=== PATIENT | female | born 1940 | race Caucasian/White ===

== ENCOUNTER 2017-10-11 13:38 | Inpatient (IN) | payer MEDICARE, OTHER ==
[~2017-10-11] VITALS: Ht 170.2 cm; Wt 64.0 kg
[~2017-10-11 13:38] MED LIST: ASPIR 8181 MG; CO Q-1050 MG; FENOFIBRATE145 MG; FERROUS SULFAT325 MG; GABAPENTIN300 MG PO; LOSARTAN POTAS100 MG PO; METOPROLOL SUCC25 MG; PLAVIX75 MG PO; PRAVASTATIN SOD40 MG; VITAMIN B-121000 MCG PO
[2017-10-11 14:05] LABS: BASOPHILS % 0.3 % (0.0-1.0); EOSINOPHILS # (AUTO) 0.2 (0.0-0.4); EOSINOPHILS % 1.7 % (0.0-6.0); LYMPHOCYTES % 11.3 % (18.0-39.1); MEAN CORPUSCULAR HEMOGLOBIN 23.1 pg (28-32); MEAN CORPUSCULAR HGB CONC 28.2 g/dL (31-35); MEAN CORPUSCULAR VOLUME 82.1 fL (81-99); MONOCYTES # (AUTO) 0.8 (0.2-0.8); MONOCYTES % 8.7 % (4.4-11.3); NEUTROPHILS # (AUTO) 6.8 (2.1-6.9); NEUTROPHILS % 77.4 % (38.7-80.0); PLATELET COUNT 412 x10e3/uL (140-360); RED BLOOD COUNT 2.29 x10e6/uL (3.6-5.1); RED CELL DISTRIBUTION WIDTH 17.2 % (11.7-14.4)
[2017-10-11 14:09] LABS: HEMATOCRIT 18.8 % (34.2-44.1); HEMOGLOBIN 5.3 g/dL (12.0-16.0)
[2017-10-11] MEDS ORDERED: DEXILANT60 MG (14:14)
[2017-10-11 14:22] LABS: ALANINE AMINOTRANSFERASE 9 IU/L (0-55); ALBUMIN 3.4 g/dL (3.5-5.0); ALBUMIN/GLOBULIN RATIO 1.2 (0.8-2.0); ALKALINE PHOSPHATASE 41 IU/L (40-150); ANION GAP 11.2 mmol/L (8-16); BLOOD UREA NITROGEN 24 mg/dL (7-26); BUN/CREATININE RATIO 18 (6-25); CALCIUM 9.7 mg/dL (8.4-10.2); CARBON DIOXIDE 26 mmol/L (22-29); CHLORIDE 110 mmol/L (98-107); CREATININE, SERUM 1.31 mg/dL (0.57-1.11); EST GLOMERULAR FILTRATION RATE 39 ML/MIN (60-); GLUCOSE 95 mg/dL (74-118); POTASSIUM 4.2 mmol/L (3.5-5.1); SODIUM 143 mmol/L (136-145)
[2017-10-11] MEDS ORDERED: SODIUM CHLORIDE FLUSH 10 ML SYR INJ PRN (14:30)
[2017-10-11] MEDS ORDERED: ONDANSETRON HCL INJ 2 MG/ML VIAL IV PRN (14:30)
[2017-10-11] MEDS ORDERED: MORPHINE SULFATE 2 MG/ML SYR IV PRN (14:30)
[2017-10-11 15:27] LABS: RBC MORPHOLOGY COMMENT NORMAL
[2017-10-11 15:28] LABS: HYPOCHROMASIA MODERATE; PLATELET ESTIMATE MODERATELY INCREASED; PLATELET MORPHOLOGY COMMENT NORMAL
[2017-10-11 15:30] VITALS: BP 133/81
[2017-10-11 15:53] VITALS: BP 133/81
--- NOTE | 2017-10-11 16:58 | Consultation ---
DATE OF CONSULTATION: October 11, 2017 CARDIOLOGY CONSULTATION REASON FOR CONSULTATION: Coronary artery disease and peripheral arterial disease. CHIEF COMPLAINT: Feeling weak and tired all the time and feeling dizzy intermittently. HISTORY OF PRESENT ILLNESS: Patient is a 77-year-old white female who is well known to our practice. She has been following in clinic for several years. Patient has history of coronary artery disease and has had stents placed previously. She also has history of peripheral arterial disease and has had intervention to bilateral SFAs in the past. She recently complained about having some chest discomfort with exertion that was between her shoulder blades and occurring with exertion and relieved by rest. It was 5 out of 10 in severity, aching in its quality, lasted about 5 to 10 minutes, and other than exertion did not have any other modifying factors, no other associated signs or symptoms. Because of this a stress test was ordered as an outpatient, and the stress test was recently noted to be positive. Therefore, patient was scheduled to undergo a coronary angiogram, as well as angiography of her right lower extremity for possible occlusion in her SFA due to abnormal Doppler studies as well as claudication in that leg, earlier today. However, the procedures had to be cancelled due to her hemoglobin being less than 6. Patient is now admitted to [facility] for further evaluation and treatment of the severe anemia, and we will be following her cardiac as well as vascular conditions. REVIEW OF SYSTEMS: A 10-point review of systems was performed and was negative other than what is mentioned in the HPI. PAST MEDICAL HISTORY 1. Coronary artery disease status post PCI in the past. 2. Peripheral artery disease status post SCHEDULE HANGER to bilateral SFAs in 2016. 3. Hypertension. 4. Hyperlipidemia. 5. Chronic anemia. 6. Occult GI bleeding. FAMILY HISTORY: Noncontributory. SOCIAL HISTORY: Patient does not smoke or drink and has never used any illicit drugs. Patient is and lives with her . Patient is a Taoist and refuses all blood transfusions and blood products. PHYSICAL EXAMINATION VITAL SIGNS: Heart rate 78, respiratory rate 20, blood pressure is 133/81 with O2 saturation of 98% on room air. EYES: Conjunctivae are pale but clear. EARS, NOSE, MOUTH AND THROAT: Patient has normal-appearing mucosa with pallor but otherwise no signs of bleeding or any ulceration. NECK: No jugular venous distention noted. MSK: Normal muscle tone and strength. No atrophy or abnormal movements. EXTREMITIES: No clubbing or cyanosis noted. SKIN: There are no venous stasis changes or ulcerations. GENERAL: Well-developed, well-nourished female that is well-groomed and pleasant. CARDIOVASCULAR: PMI is nondisplaced. Heart tones are regular. S1 and S2 are normal. No murmur, rubs or gallops. No carotid bruits. Palpable femoral pulses bilaterally. Palpable pedal pulse on the left and dopplerable pedal pulse on the right. No peripheral edema or varicosities noted. RESPIRATORY: No respiratory distress. Clear to auscultation bilaterally. ABDOMEN: Soft, nontender. No masses noted. No hepatomegaly or splenomegaly. NEURO AND PSYCH: Alert and oriented to person, place and time. Normal affect. ALLERGIES: NO KNOWN DRUG ALLERGIES. MEDICATIONS: Significant outpatient cardiovascular medications: Plavix 75 mg daily, losartan 100 mg daily, metoprolol succinate 25 mg daily and pravastatin 40 mg daily. LABS: Available labs are reviewed, most notable for a hemoglobin of 5.3 which is critically low. IMAGING: No imaging studies to review at this time. CARDIAC STUDIES: As noted in the HPI. There are no inpatient cardiac studies to review at this time. ASSESSMENT 1. Coronary artery disease. 2. Positive stress test. 3. Peripheral arterial disease with abnormal ultrasound of right lower extremity. 4. Claudication of the right lower extremity. PLAN: From a cardiovascular standpoint, the patient has chronic disease that needs to be addressed. However, given patient's critically low hemoglobin, this will need to be addressed before any intervention can be planned or any cardiac catheterization can be attempted. While the patient is undergoing evaluation and treatment for her chronic anemia, I recommend continuation of above-mentioned cardiovascular medicines. If it is decided that the patient is indeed experiencing bleeding and this may be life-threatening, it is acceptable to hold Plavix at this time with close observation for risk for stent thrombosis which, although minimal as the stent is over a year old, is not zero as patient is off all antiplatelet agents. Thank you for involving us in this patient's care. Job#: [id number] EV
[2017-10-11] MEDS ORDERED: IRON DEXTRAN INJ 500 MG in SODIUM CHLORIDE 0.9% 500ML 500 ML IV PRN (18:45)
[2017-10-11 19:04] LABS: CREATINE KINASE < 70 IU/L (29-168)
[2017-10-11 19:09] VITALS: BP 133/81
[2017-10-11] MEDS ORDERED: EPOETIN ALFA 10000 UNIT/ML VIAL SC ONE (19:45)
[2017-10-11 20:00] VITALS: BP 109/50
[2017-10-11] MEDS ORDERED: DEXAMETHASONE PHOS 10MG INJ 20 MG in SODIUM CHLORIDE 0.9% 50ML 50 ML IV ONE (21:00)
[2017-10-11] MEDS ORDERED: FAMOTIDINE INJ 20 MG in SODIUM CHLORIDE 0.9% 50ML 50 ML IV ONE (21:00)
[2017-10-11] MEDS ORDERED: DIPHENHYDRAMINE HCL INJ 25 MG in SODIUM CHLORIDE 0.9% 50ML 50 ML IV ONE (21:00)
[2017-10-11] MEDS: POTASSIUM CHLORIDE 10 MEQ in SODIUM CHLORIDE 0.9% 1000ML 1,000 ML IV SCH (21:56)
[2017-10-11] MEDS: PRAVASTATIN 20 MG TAB PO SCH (21:57)
[2017-10-11] MEDS: FENOFIBRATE 145 MG TAB PO SCH (21:57)
[2017-10-11] MEDS ORDERED: IRON DEXTRAN INJ 50 MG in SODIUM CHLORIDE 0.9% 100 ML IV ONE (22:00)
[2017-10-11] MEDS ORDERED: IRON SUCROSE IV ONE (22:00)
[2017-10-11] MEDS ORDERED: SODIUM CHLORIDE 0.9% IV ONE (22:00)
[2017-10-11] MEDS ORDERED: IRON SUCROSE 500 MG in SODIUM CHLORIDE 0.9% 500ML 500 ML IV ONE (23:00)
[2017-10-12] VITALS (9 sets, daily range): BP systolic 107–133; BP diastolic 47–60
[2017-10-12 05:27] LABS: BASOPHILS % 0.1 % (0.0-1.0); EOSINOPHILS % 0.1 % (0.0-6.0); LYMPHOCYTES # (AUTO) 0.6 (1.0-3.2); LYMPHOCYTES % 6.8 % (18.0-39.1); MEAN CORPUSCULAR HEMOGLOBIN 23.5 pg (28-32); MEAN CORPUSCULAR HGB CONC 28.2 g/dL (31-35); MEAN CORPUSCULAR VOLUME 83.2 fL (81-99); MONOCYTES # (AUTO) 0.1 (0.2-0.8); MONOCYTES % 0.9 % (4.4-11.3); NEUTROPHILS # (AUTO) 8.4 (2.1-6.9); NEUTROPHILS % 91.6 % (38.7-80.0); PLATELET COUNT 388 x10e3/uL (140-360); RED BLOOD COUNT 2.26 x10e6/uL (3.6-5.1); RED CELL DISTRIBUTION WIDTH 16.9 % (11.7-14.4)
[2017-10-12 05:29] LABS: HEMATOCRIT 18.8 % (34.2-44.1); HEMOGLOBIN 5.3 g/dL (12.0-16.0)
[2017-10-12 06:11] LABS: LYMPHOCYTES % (MANUAL) 7 % (19-48); NEUTROPHILS % (MANUAL) 93 % (40-74)
[2017-10-12 06:12] LABS: ANISOCYTOSIS MODERATE; HYPOCHROMASIA MODERATE; PLATELET ESTIMATE ADEQUATE; PLATELET MORPHOLOGY COMMENT NORMAL; RBC MORPHOLOGY COMMENT NORMAL
[2017-10-12] MEDS: POTASSIUM CHLORIDE 10 MEQ in SODIUM CHLORIDE 0.9% 1000ML 1,000 ML IV SCH ×2 (08:09→21:16)
[2017-10-12] MEDS: CO Q10 PO SCH ×2 (09:00→17:00)
[2017-10-12] MEDS: PANTOPRAZOLE SOD 40 MG TABEC PO SCH (11:09)
[2017-10-12] MEDS: METOPROLOL SUCCINATE 25 MG TAB XL PO SCH (11:09)
[2017-10-12] MEDS: CYANOCOBALAMIN 1,000 MCG TAB PO SCH (11:09)
[2017-10-12] MEDS: LOSARTAN POTASSIUM 100 MG TAB PO SCH (11:09)
[2017-10-12] MEDS: CLOPIDOGREL BISULFATE 75 MG TAB PO SCH (11:15)
--- NOTE | 2017-10-12 13:16 | Progress Note ---
DATE: October 12, 2017 CARDIOLOGY PROGRESS NOTE SUBJECTIVE AND OVERNIGHT EVENTS: Patient received injection of her EPO yesterday. No major events otherwise overnight. Feels okay. Has not had any chest pain or significant dyspnea on exertion. No signs of acute active bleeding. OBJECTIVE VITAL SIGNS: Temperature 96.3, heart rate 83, respiratory rate 16, blood pressure 112/53, saturations 98% on room air. GENERAL: Patient is a well-developed and well-nourished female, well groomed. CARDIOVASCULAR: Patient's PMI is nondisplaced. Has regular heart tones. Normal S1, S2. No murmurs, rubs, or gallops heard. Patient has brisk carotid upstrokes, palpable femoral pulses as well as palpable pedal pulses, left greater than right. No significant peripheral edema or varicosities noted. RESPIRATORY: No acute distress. LUNGS: Clear to auscultation bilaterally. ABDOMEN: Soft, nontender, nondistended. No masses or hepatosplenomegaly noted. NEURO AND PSYCH: Patient is alert and oriented to person, place and time. Displays a normal affect. CARDIOVASCULAR MEDICATIONS: The patient is on 1. Clopidogrel 75 mg daily. 2. Metoprolol succinate 25 mg daily. 3. Losartan 100 mg daily. LABORATORY DATA: Reviewed and notable for hemoglobin of 5.3 which is unchanged from yesterday. Chemistry--patient's BNP was noted to be 325.4. IMAGING: No new imaging data to review today. TELEMETRY: Reviewed. Notable for normal sinus rhythm with some PACs, no significant arrhythmias. ASSESSMENT 1. Coronary artery disease. 2. Positive stress test. 3. Peripheral arterial disease with abnormal ultrasound of the right lower extremity. 4. Claudication of the right lower extremity. 5. Severe anemia. PLAN: Patient remains stable from a cardiovascular standpoint. Receiving treatment for her severe anemia with epoetin as patient's spiritism beliefs prevent her from receiving any blood transfusions. Do not plan on doing any catheterizations or cardiac or peripheral vascular interventions until her hemoglobin recovers. Recommend we continue the cardiovascular medications as stated above. Patient had stent placement in September 2016 so is greater than one year out from her most recent stenting. Although the risk of stent thrombosis with stopping antiplatelets would be relatively low, would recommend that we continue Plavix unless there is deemed to be life-threatening bleeding as consequence of stent thrombosis can be devastating. Job#: [id number] DG
[2017-10-12] MEDS: EPOETIN ALFA 10000 UNIT/ML VIAL SC SCH (14:54)
[2017-10-12] MEDS ORDERED: CYANOCOBALAMIN IM (15:30)
[2017-10-12] MEDS ORDERED: FISH OIL 1,0001 EAC3 PO (17:51)
[2017-10-12] MEDS ORDERED: CYANOCOBALAMIN IM SCH (19:30)
[2017-10-12] MEDS ORDERED: HOME MEDICATION--PATIENTS OWN PO SCH (21:00)
[2017-10-12] MEDS: PRAVASTATIN 20 MG TAB PO SCH (21:16)
[2017-10-12] MEDS: FENOFIBRATE 145 MG TAB PO SCH (21:16)
[2017-10-12] MEDS: CYANOCOBALAMIN INJ 1,000 MCG/ML VIAL IM SCH (21:30)
[2017-10-13] VITALS (7 sets, daily range): BP systolic 92–124; BP diastolic 41–60
[2017-10-13 05:44] LABS: BASOPHILS % 0.1 % (0.0-1.0); EOSINOPHILS % 0.2 % (0.0-6.0); LYMPHOCYTES # (AUTO) 1.4 (1.0-3.2); LYMPHOCYTES % 6.1 % (18.0-39.1); MEAN CORPUSCULAR HEMOGLOBIN 23.4 pg (28-32); MEAN CORPUSCULAR HGB CONC 29.2 g/dL (31-35); MEAN CORPUSCULAR VOLUME 80.2 fL (81-99); MONOCYTES # (AUTO) 1.6 (0.2-0.8); MONOCYTES % 6.9 % (4.4-11.3); NEUTROPHILS # (AUTO) 19.1 (2.1-6.9); NEUTROPHILS % 84.8 % (38.7-80.0); PLATELET COUNT 328 x10e3/uL (140-360); RED BLOOD COUNT 1.92 x10e6/uL (3.6-5.1); RED CELL DISTRIBUTION WIDTH 17.2 % (11.7-14.4)
[2017-10-13 05:48] LABS: HEMATOCRIT 15.4 % (34.2-44.1); HEMOGLOBIN 4.5 g/dL (12.0-16.0)
[2017-10-13 06:15] LABS: LYMPHOCYTES % (MANUAL) 9 % (19-48); MONOCYTES % (MANUAL) 10 % (3.4-9.0); NEUTROPHILS % (MANUAL) 81 % (40-74); NUCLEATED RED BLOOD CELLS 3; RBC MORPHOLOGY COMMENT NORMAL
[2017-10-13 06:16] LABS: PLATELET ESTIMATE ADEQUATE; PLATELET MORPHOLOGY COMMENT NORMAL
[2017-10-13] MEDS: CO Q10 PO SCH ×2 (09:00→17:00)
[2017-10-13] MEDS: CLOPIDOGREL BISULFATE 75 MG TAB PO SCH (09:00)
[2017-10-13] MEDS: LOSARTAN POTASSIUM 100 MG TAB PO SCH (09:00)
[2017-10-13] MEDS: CYANOCOBALAMIN 1,000 MCG TAB PO SCH (09:00)
[2017-10-13] MEDS: OMEGA 3 POLYUNSAT FATTY ACIDS 1000 MG SOFTGEL PO SCH ×2 (09:00→17:00)
[2017-10-13] MEDS: METOPROLOL SUCCINATE 25 MG TAB XL PO SCH (09:00)
[2017-10-13] MEDS: PANTOPRAZOLE SOD 40 MG TABEC PO SCH (09:00)
[2017-10-13] MEDS: POTASSIUM CHLORIDE 10 MEQ in SODIUM CHLORIDE 0.9% 1000ML 1,000 ML IV SCH ×2 (10:57→18:45)
--- NOTE | 2017-10-13 11:07 | Progress Note ---
DATE: October 13, 2017 CARDIOLOGY PROGRESS NOTE SUBJECTIVE: Patient denies chest pain or shortness of breath. She does continue to complain of weakness. OBJECTIVE VITAL SIGNS: Temperature 96 degrees, pulse 76, respiratory rate 14, blood pressure 93/51, oxygen saturation 97% on room air. GENERAL: Awake, alert, in no acute distress. LUNGS: Clear to auscultation bilaterally. No wheezes or crackles. CARDIOVASCULAR: Normal rate, regular rhythm. No murmur. Normal S1 and S2. ABDOMEN: Soft, nontender. EXTREMITIES: No edema. CARDIAC MEDICATIONS 1. Fenofibrate 145 mg p.o. nightly. 2. Plavix 75 mg p.o. daily. 3. Metoprolol succinate 25 mg p.o. daily. 4. Losartan 100 mg p.o. daily. 5. Fish oil 1000 mg p.o. b.i.d. LABS: WBC 22.5, hemoglobin 4.5, hematocrit 15.4, platelets 328. TELEMETRY: Normal sinus rhythm. IMPRESSION 1. Severe anemia. 2. Coronary artery disease status post left anterior descending percutaneous coronary intervention September 2016. 3. Peripheral arterial disease with bilateral lower extremity arterial Doppler suggesting severe focal stenosis of the right superficial femoral artery. 4. Nuclear stress test with inferior ischemia. 5. Positive stool occult blood. RECOMMENDATIONS: As patient is a Christianity, she is unable to receive any blood transfusions. She is being treated by Hematology with Epogen as well as iron infusions. She is stable from a cardiac standpoint. However, at this time she is not a candidate for any invasive cardiac or peripheral evaluations due to her severe anemia. Given decrease in hemoglobin and hematocrit, we will discontinue Plavix and start low-dose aspirin. Continue current cardiac medications otherwise. Further evaluation of positive stool occult blood per primary service. Thank you for this consult. We will continue to follow. Job#: [id number] EV MTDGreg
[2017-10-13] MEDS: FENOFIBRATE 145 MG TAB PO SCH (21:17)
[2017-10-13] MEDS: PRAVASTATIN 20 MG TAB PO SCH (21:17)
[2017-10-14] VITALS (7 sets, daily range): BP systolic 103–128; BP diastolic 47–58
[2017-10-14 05:24] LABS: BASOPHILS % 0.2 % (0.0-1.0); EOSINOPHILS # (AUTO) 0.1 (0.0-0.4); EOSINOPHILS % 0.4 % (0.0-6.0); LYMPHOCYTES # (AUTO) 1.2 (1.0-3.2); MEAN CORPUSCULAR HGB CONC 28.7 g/dL (31-35); MEAN CORPUSCULAR VOLUME 83.7 fL (81-99); MONOCYTES % 8.2 % (4.4-11.3); PLATELET COUNT 345 x10e3/uL (140-360); RED BLOOD COUNT 1.96 x10e6/uL (3.6-5.1)
[2017-10-14 05:29] LABS: HEMATOCRIT 16.4 % (34.2-44.1); HEMOGLOBIN 4.7 g/dL (12.0-16.0)
[2017-10-14 08:04] LABS: EOSINOPHILS % (MANUAL) 2 % (0-7); LYMPHOCYTES % (MANUAL) 4 % (19-48); MONOCYTES % (MANUAL) 6 % (3.4-9.0); NEUTROPHILS % (MANUAL) 88 % (40-74)
[2017-10-14 08:05] LABS: ANISOCYTOSIS MODERATE; HYPOCHROMASIA MODERATE; MICROCYTOSIS SLIGHT; POLYCHROMASIA FEW; RBC MORPHOLOGY COMMENT ABNORMAL
[2017-10-14] MEDS: CO Q10 PO SCH ×2 (09:00→17:00)
[2017-10-14] MEDS: ASPIRIN 81 MG ENTERIC COATED PO SCH (09:01)
[2017-10-14] MEDS: LOSARTAN POTASSIUM 100 MG TAB PO SCH (09:02)
[2017-10-14] MEDS: METOPROLOL SUCCINATE 25 MG TAB XL PO SCH (09:02)
[2017-10-14] MEDS: CYANOCOBALAMIN 1,000 MCG TAB PO SCH (09:02)
[2017-10-14] MEDS: OMEGA 3 POLYUNSAT FATTY ACIDS 1000 MG SOFTGEL PO SCH ×2 (09:02→17:13)
[2017-10-14] MEDS: PANTOPRAZOLE SOD 40 MG TABEC PO SCH (09:02)
[2017-10-14] MEDS: POTASSIUM CHLORIDE 10 MEQ in SODIUM CHLORIDE 0.9% 1000ML 1,000 ML IV SCH ×3 (11:30→23:52)
--- NOTE | 2017-10-14 13:04 | Progress Note ---
DATE: October 14, 2017 CARDIOLOGY PROGRESS NOTE SUBJECTIVE: Patient denies chest pain or shortness of breath. She is complaining of nausea today. OBJECTIVE VITAL SIGNS: Temperature 98.8 degrees, pulse 86, respiratory rate 16, blood pressure 107/53, oxygen saturation 97% on room air. GENERAL: Awake, alert, in no acute distress. LUNGS: Clear to auscultation bilaterally. No wheezes or crackles. CARDIOVASCULAR: Normal rate, regular rhythm. No murmur. Normal S1 and S2. ABDOMEN: Soft, nontender. EXTREMITIES: No edema. CARDIAC MEDICATIONS 1. Metoprolol succinate 25 mg p.o. daily. 2. Losartan 100 mg p.o. daily. 3. Aspirin 81 mg p.o. daily. 4. Fenofibrate 145 mg p.o. nightly. LABS: WBC 24.06, hemoglobin 4.7, hematocrit 16.4, platelets 345. Sodium 143, potassium 4.2, chloride 110, CO2 26, BUN 24, creatinine 1.31. TELEMETRY: Normal sinus rhythm. IMPRESSION 1. Severe anemia. 2. Coronary artery disease status post left anterior descending percutaneous coronary intervention September 2016. 3. Peripheral arterial disease with bilateral lower extremity arterial Doppler suggesting severe focal stenosis of the right superficial femoral artery. 4. Nuclear stress test with inferior ischemia. 5. Positive stool occult blood. RECOMMENDATIONS: Due to patient's anglican beliefs, she is unable to receive any blood transfusions. She is being treated by Hematology with Epogen as well as iron infusions. Recommend GI consultation given the patient's positive stool occult blood as well as nausea. She is otherwise stable from a cardiac standpoint. However, she is not a candidate for any invasive cardiac or peripheral evaluations due to her severe anemia. Continue current cardiac medications. Thank you for this consult. We will continue to follow. Job#: [id number] EV MIO
[2017-10-14] MEDS ORDERED: SODIUM CHLORIDE 0.9% 1000ML 1,000 ML ONE (15:22)
[2017-10-14] MEDS: PRAVASTATIN 20 MG TAB PO SCH (20:42)
[2017-10-14] MEDS: FENOFIBRATE 145 MG TAB PO SCH (20:42)
[2017-10-15] VITALS (8 sets, daily range): BP systolic 109–150; BP diastolic 48–65
[2017-10-15 06:06] LABS: BASOPHILS % 0.1 % (0.0-1.0); EOSINOPHILS # (AUTO) 0.2 (0.0-0.4); EOSINOPHILS % 1.2 % (0.0-6.0); LYMPHOCYTES # (AUTO) 0.7 (1.0-3.2); LYMPHOCYTES % 5.3 % (18.0-39.1); MEAN CORPUSCULAR VOLUME 85.7 fL (81-99); MONOCYTES # (AUTO) 1.3 (0.2-0.8); MONOCYTES % 9.3 % (4.4-11.3); NEUTROPHILS # (AUTO) 11.3 (2.1-6.9); NEUTROPHILS % 82.6 % (38.7-80.0); PLATELET COUNT 314 x10e3/uL (140-360); RED BLOOD COUNT 1.96 x10e6/uL (3.6-5.1); RED CELL DISTRIBUTION WIDTH 19.8 % (11.7-14.4)
[2017-10-15 06:34] LABS: HEMATOCRIT 16.8 % (34.2-44.1); HEMOGLOBIN 4.7 g/dL (12.0-16.0)
[2017-10-15 08:00] LABS: POLYCHROMASIA FEW; RBC MORPHOLOGY COMMENT NORMAL
[2017-10-15 08:01] LABS: ANISOCYTOSIS SLIG; HYPOCHROMASIA MODE; PLATELET ESTIMATE ADEQUATE; PLATELET MORPHOLOGY COMMENT NORMAL; POIKILOCYTOSIS SLIGHT
[2017-10-15] MEDS: CO Q10 PO SCH ×2 (08:48→16:52)
[2017-10-15] MEDS: CYANOCOBALAMIN 1,000 MCG TAB PO SCH (08:48)
[2017-10-15] MEDS: ASPIRIN 81 MG ENTERIC COATED PO SCH (08:48)
[2017-10-15] MEDS: LOSARTAN POTASSIUM 100 MG TAB PO SCH (08:48)
[2017-10-15] MEDS: OMEGA 3 POLYUNSAT FATTY ACIDS 1000 MG SOFTGEL PO SCH ×2 (08:48→17:13)
[2017-10-15] MEDS: METOPROLOL SUCCINATE 25 MG TAB XL PO SCH (08:48)
[2017-10-15] MEDS: PANTOPRAZOLE SOD 40 MG TABEC PO SCH (08:48)
[2017-10-15] MEDS: CYANOCOBALAMIN INJ 1,000 MCG/ML VIAL IM SCH (08:48)
[2017-10-15] MEDS: METOCLOPRAMIDE HCL 10 MG TAB PO SCH ×2 (12:07→17:13)
--- NOTE | 2017-10-15 13:30 | Progress Note ---
DATE: October 15, 2017 CARDIOLOGY PROGRESS NOTE SUBJECTIVE AND OVERNIGHT EVENTS: No major events overnight. From a cardiovascular perspective, patient remains asymptomatic. Denies any chest pain, shortness of breath or any rest pain in lower extremities. Patient has been able to go up and use the restroom and walk around the room on her own. Reports some nausea and some headache this morning, otherwise asymptomatic. REVIEW OF SYSTEMS: As above, otherwise negative. PHYSICAL EXAMINATION VITAL SIGNS: Temperature 97.3, heart rate 90, respiratory rate 18, blood pressure 117/57. Saturations 97% on room air. GENERAL: Patient is a well-developed, well-nourished female who was well groomed. CARDIOVASCULAR: Her PMI is nondisplaced. Heart tones are regular. S1 and S2 are normal. No murmurs, rubs, or gallops are heard. She has bounding carotid pulses. Has palpable femoral pulses. Her pedal pulses are diminished and barely palpable. There is trace peripheral edema to the ankles and no varicosities are noted. RESPIRATORY: No respiratory distress. Clear to auscultation bilaterally. ABDOMEN: Soft, nontender and nondistended. There are no masses and no hepatosplenomegaly. NEURO AND PSYCH: Patient is alert and oriented to person, place and time and displays a normal affect. CARDIOVASCULAR MEDICATIONS: As follows 1. Aspirin 81 mg daily. 2. Metoprolol succinate 25 mg daily. 3. Losartan 100 mg daily. 4. Fenofibrate 145 mg at night time. LABORATORY: Notable for hemoglobin of 4.7, is critically low. Otherwise, no significant changes. No new imaging to review. TELEMETRY: Telemetry reviewed. No significant arrhythmias. Normal sinus rhythm. ASSESSMENT AND PLAN 1. Severe anemia. 2. Coronary artery disease status post left anterior descending stents in September 2016. 3. Peripheral arterial disease with bilateral lower extremity arterial Doppler suggesting focal stenosis of the right SFA. 4. Positive nuclear stress test with inferior ischemia. 5. Positive stool occult blood. PLAN: Patient's hemoglobin remains critically low however due to her presybeterian beliefs, she is unable to accept any blood transfusions. She is currently being managed by Hematology with Epogen, B12 and iron. There is no evidence of any overt bleeding however her stool occult was positive. Due to this we changed her Plavix 75 daily to now just aspirin 81 mg daily which would be the lowest level of antiplatelet therapy that she can receive from cardiovascular standpoint. Despite having positive stress test as noted above and Doppler suggesting of a focal stenosis in the right SFA as described above, given her critically low hemoglobin, patient is not a candidate for any interventions at this point. Recommend that we continue her cardiac medications as stated above. Will continue to follow. Thank you for this consult. Job#: [id number] VIBHA
[2017-10-15] MEDS: EPOETIN ALFA 10000 UNIT/ML VIAL SC SCH (15:30)
[2017-10-15] MEDS: POTASSIUM CHLORIDE 10 MEQ in SODIUM CHLORIDE 0.9% 1000ML 1,000 ML IV SCH (16:05)
[2017-10-15] MEDS: FENOFIBRATE 145 MG TAB PO SCH (21:57)
[2017-10-15] MEDS: SIMVASTATIN 20 MG TAB PO SCH (21:57)
[2017-10-16] VITALS (7 sets, daily range): BP systolic 100–120; BP diastolic 45–65
[2017-10-16 05:57] LABS: BASOPHILS % 0.2 % (0.0-1.0); EOSINOPHILS # (AUTO) 0.2 (0.0-0.4); EOSINOPHILS % 1.7 % (0.0-6.0); LYMPHOCYTES # (AUTO) 0.7 (1.0-3.2); LYMPHOCYTES % 6.3 % (18.0-39.1); MEAN CORPUSCULAR HEMOGLOBIN 24.7 pg (28-32); MEAN CORPUSCULAR HGB CONC 28.3 g/dL (31-35); MEAN CORPUSCULAR VOLUME 87.4 fL (81-99); MONOCYTES # (AUTO) 0.9 (0.2-0.8); MONOCYTES % 8.1 % (4.4-11.3); NEUTROPHILS # (AUTO) 9.1 (2.1-6.9); NEUTROPHILS % 82.4 % (38.7-80.0); PLATELET COUNT 261 x10e3/uL (140-360); RED BLOOD COUNT 1.98 x10e6/uL (3.6-5.1)
[2017-10-16 06:09] LABS: HEMATOCRIT 17.3 % (34.2-44.1); HEMOGLOBIN 4.9 g/dL (12.0-16.0)
[2017-10-16 07:24] LABS: ANISOCYTOSIS MODE; HYPOCHROMASIA MODE; PLATELET ESTIMATE ADEQUATE; PLATELET MORPHOLOGY COMMENT NORMAL; POIKILOCYTOSIS SLIGHT; POLYCHROMASIA FEW; RBC MORPHOLOGY COMMENT ABNORMAL
[2017-10-16] MEDS: METOCLOPRAMIDE HCL 10 MG TAB PO SCH ×3 (08:05→17:24)
[2017-10-16] MEDS: CYANOCOBALAMIN 1,000 MCG TAB PO SCH (08:45)
[2017-10-16] MEDS: METOPROLOL SUCCINATE 25 MG TAB XL PO SCH (08:45)
[2017-10-16] MEDS: CO Q10 PO SCH ×2 (08:45→17:00)
[2017-10-16] MEDS: LOSARTAN POTASSIUM 100 MG TAB PO SCH (08:45)
[2017-10-16] MEDS: ASPIRIN 81 MG ENTERIC COATED PO SCH (08:45)
[2017-10-16] MEDS: PANTOPRAZOLE SOD 40 MG TABEC PO SCH (08:45)
[2017-10-16] MEDS: OMEGA 3 POLYUNSAT FATTY ACIDS 1000 MG SOFTGEL PO SCH ×2 (08:45→17:24)
--- NOTE | 2017-10-16 14:55 | Progress Note ---
DATE: October 16, 2017 CARDIOLOGY PROGRESS NOTE SUBJECTIVE/OVERNIGHT EVENTS: No major overnight events. From a cardiovascular perspective, the patient remains overnight. Denies any chest pain, shortness of breath or any claudication symptoms. She has been ambulating inside her room without any symptoms. Reports that she feels a little more energetic today. Her appetite has also improved. REVIEW OF SYSTEMS: As above. Otherwise negative. PHYSICAL EXAMINATION VITAL SIGNS: Temperature 98.8, heart rate 88, respiratory rate 18, blood pressure 100/47, oxygen saturation 98% on room air. GENERAL: The patient is a well-developed, well-nourished female who is well groomed. CARDIOVASCULAR: PMI is not displaced. Heart tones regular. S1 and S2 normal. No murmurs, rubs or gallops are heard. Pounding carotid pulses. Palpable femoral pulses. Pedal pulses are diminished. Trace peripheral edema to the ankles without varicosities. RESPIRATORY: No respiratory distress. Clear to auscultation bilaterally. ABDOMEN: Soft, nontender and nondistended. There are no masses and no hepatosplenomegaly. NEURO/PSYCH: The patient is alert and oriented to person, place and time. Displays a normal affect. CARDIOVASCULAR MEDICATIONS 1. Aspirin 81 mg daily. 2. Metoprolol succinate 25 mg daily. 3. Losartan 100 mg daily. 4. Simvastatin 20 mg at bedtime. 5. Fenofibrate 145 mg at bedtime. LABORATORY FINDINGS: Lab data reviewed. Notable for slight improvement in hemoglobin from 4.7 to 4.9. IMAGING: No new imaging data to review. Telemetry data reviewed. Normal sinus rhythm without any significant arrhythmias. CARDIOLOGY STUDIES: No new cardiology studies to review. ASSESSMENT AND PLAN 1. Severe anemia. 2. Coronary artery disease: Status post left anterior descending stents in September 2016. 3. Peripheral arterial disease with bilateral lower extremity Dopplers suggesting focal stenosis of the right superficial femoral artery. 4. Positive nuclear stress test with inferior ischemia. 5. Positive stool occult blood. PLAN: The patient's hemoglobin remains critically low. However, has come up slightly from 4.7 to 4.9. The patient refuses any blood transfusions or blood products given her strong samaritan beliefs. There is no evidence of any overt bleeding. However, her stool occult was positive for blood. Due to this, we have changed her Plavix 75 mg daily to now just aspirin 81 mg daily to minimize any bleeding risk from antiplatelet agents. She does have a positive stress test, and Doppler suggesting of focal stenosis of the right SFA. However, given her critically low hemoglobin, the patient is not a candidate for any catheterizations or interventions at this time. Recommend that we continue her cardiac medications as stated above. Will continue to follow. Thank you for this consult. Job#: [id number] MONY
[2017-10-16] MEDS: POTASSIUM CHLORIDE 10 MEQ in SODIUM CHLORIDE 0.9% 1000ML 1,000 ML IV SCH (18:35)
[2017-10-16] MEDS: FENOFIBRATE 145 MG TAB PO SCH (21:56)
[2017-10-16] MEDS: SIMVASTATIN 20 MG TAB PO SCH (21:56)
[2017-10-17] VITALS: BP 125/53
[2017-10-17 04:00] VITALS: BP 114/56
[2017-10-17 05:59] LABS: BASOPHILS % 0.2 % (0.0-1.0); EOSINOPHILS # (AUTO) 0.2 (0.0-0.4); EOSINOPHILS % 1.6 % (0.0-6.0); LYMPHOCYTES # (AUTO) 0.8 (1.0-3.2); LYMPHOCYTES % 5.8 % (18.0-39.1); MEAN CORPUSCULAR HEMOGLOBIN 23.8 pg (28-32); MEAN CORPUSCULAR HGB CONC 27.6 g/dL (31-35); MEAN CORPUSCULAR VOLUME 86.1 fL (81-99); MONOCYTES % 7.8 % (4.4-11.3); NEUTROPHILS # (AUTO) 10.8 (2.1-6.9); NEUTROPHILS % 83.6 % (38.7-80.0); PLATELET COUNT 338 x10e3/uL (140-360); RED BLOOD COUNT 2.23 x10e6/uL (3.6-5.1); RED CELL DISTRIBUTION WIDTH 21.1 % (11.7-14.4)
[2017-10-17 06:23] LABS: HEMATOCRIT 19.2 % (34.2-44.1); HEMOGLOBIN 5.3 g/dL (12.0-16.0)
[2017-10-17 07:13] LABS: ANISOCYTOSIS SLIG; ELLIPTOCYTE, RBC SLIGHT; HYPOCHROMASIA MODERATE; PLATELET ESTIMATE ADEQUATE; PLATELET MORPHOLOGY COMMENT NORMAL; POIKILOCYTOSIS SLIG
[2017-10-17 07:14] LABS: RBC MORPHOLOGY COMMENT ABNORMAL
[2017-10-17 08:20] VITALS: BP 143/97
[2017-10-17] MEDS: CO Q10 PO SCH (09:00)
[2017-10-17 09:30] VITALS: BP 143/97
[2017-10-17] MEDS: CYANOCOBALAMIN 1,000 MCG TAB PO SCH (09:30)
[2017-10-17] MEDS: LOSARTAN POTASSIUM 100 MG TAB PO SCH (09:30)
[2017-10-17] MEDS: OMEGA 3 POLYUNSAT FATTY ACIDS 1000 MG SOFTGEL PO SCH (09:30)
[2017-10-17] MEDS: ASPIRIN 81 MG ENTERIC COATED PO SCH (09:30)
[2017-10-17] MEDS: CYANOCOBALAMIN INJ 1,000 MCG/ML VIAL IM SCH (09:30)
[2017-10-17] MEDS: METOCLOPRAMIDE HCL 10 MG TAB PO SCH ×2 (09:30→12:24)
[2017-10-17] MEDS: PANTOPRAZOLE SOD 40 MG TABEC PO SCH (09:30)
[2017-10-17] MEDS: METOPROLOL SUCCINATE 25 MG TAB XL PO SCH (09:30)
--- NOTE | 2017-10-17 11:03 | Progress Note ---
DATE: October 17, 2017 CARDIOLOGY PROGRESS NOTE SUBJECTIVE AND OVERNIGHT EVENTS: The patient is doing well. No complaints overnight. No major events overnight. Denies any chest pain, shortness of breath or claudication symptoms. REVIEW OF SYSTEMS: As above. Otherwise negative. PHYSICAL EXAMINATION VITALS: Temperature 97.7, heart rate 91, respiratory rate 20, blood pressure 143/97, 98% on room air. GENERAL: The patient is a well-developed, well-nourished, white female. CARDIOVASCULAR: PMI is nondisplaced. Heart tones regular. S1 and S2 normal. No murmurs, rubs or gallops are heard. Bounding carotid pulses. Palpable femoral pulses. Diminished pedal pulses. Trace ankle edema without varicosities. RESPIRATORY: No respiratory distress. Lungs are clear to auscultation bilaterally. ABDOMEN: Soft, nontender and nondistended. No masses and no hepatosplenomegaly. NEURO/PSYCH: Alert and oriented to person, place and time. Normal affect. CARDIOVASCULAR MEDICATIONS 1. Aspirin 81 mg daily. 2. Metoprolol succinate 25 mg daily. 3. Losartan 100 mg daily. 4. Simvastatin 20 mg at bedtime. 5. Fenofibrate 145 mg at bedtime. LABORATORY FINDINGS: Laboratory data reviewed. Notable for continued improvement in hemoglobin up to 5.3 grams today. IMAGING: No new imaging data to review today. TELEMETRY: Telemetry data reviewed. Normal sinus rhythm without significant arrhythmias. CARDIOLOGY STUDIES: No new cardiology studies to review today. ASSESSMENT 1. Severe anemia. 2. Coronary artery disease, status post left anterior descending stents in September 2016. 3. Peripheral arterial disease with bilateral lower extremity Dopplers suggesting focal stenosis of the right superficial femoral artery. 4. Positive nuclear stress test with inferior ischemia. 5. Positive stool occult blood. PLAN: The patient's hemoglobin continues to improve. Remains asymptomatic from a cardiovascular standpoint. Recommend continuing the above cardiovascular medications. No plans for any cardiac interventions at this time until the hemoglobin recovers. Thank you for this consult. We will continue to follow. Job#: [id number]
--- NOTE | 2017-10-17 12:03 | History and Physical ---
Destiny Braun is a 77-year-old white female, a Jain, who was sent to my office by the lead assistant manager, who attempted to do a cardiac cath at [facility]. Subsequently was found to have a hemoglobin of 6 with GI bleed. Subsequently referred to me for further evaluation. The patient was able to ambulate just about 50 feet before the patient was giving out. The patient also reported heaviness in both lower extremities and pain between the shoulder blades. The symptoms subsided with rest. The patient had her 6-week followup on 10/20/2017, however, had to be seen immediately as the lead assistant manager had called me personally. HISTORY OF PAST ILLNESS: History of iron deficiency anemia. History of being a Jain. The patient's baseline hemoglobin was 7.2 grams on 11/23/2016. The patient had completed 4 courses of INFeD. The patient's hemoglobin had risen up reasonably. The patient had to be hospitalized again on 04/11/2017 with a hemoglobin of 6.9, treated basically with Procrit and INFeD as she is a Jain. The patient was found to have colonic polyps. MEDICATIONS AT THIS TIME 1. Dexilant. 2. Losartan. 3. Fenofibrate. 4. Ferrous sulfate. 5. Metoprolol. 6. Plavix. 7. Pravastatin. 8. Vitamin D. 9. Protonix. 10. Vitamin B12. 11. Fiber. 12. Chlorophyll. 13. [place]-3. 14. Heart HealthPak. 15. CoQ10. 16. Aloe vera juice. SURGICAL HISTORY: Polypectomy in 2012 for colorectal polyp. Peripheral arterial disease. ALLERGIES: CODEINE. REVIEW OF SYSTEMS HEENT: Normal. CARDIAC: Hypertension and hyperlipidemia. RESPIRATORY: Shortness of breath. GI: GI bleeds in the past. : Normal. MUSCULOSKELETAL: Normal. SKIN AND BREASTS: Normal. NEUROENDOCRINE: Normal. PHYSICAL EXAMINATION GENERAL: A moderately built female, anemic, no palpable adenopathy. HEART: Within normal limits. LUNGS: Clear. ABDOMEN: Obese. There is no hepatosplenomegaly. RECTAL AND VAGINAL: Exam was deferred. CENTRAL NERVOUS SYSTEM: Essentially normal. IMPRESSION 1. Iron deficiency anemia secondary to blood loss. 2. Chronic renal failure. 3. Essential hypertension. 4. History of corpus uteri. 5. History of angioplasty. 6. Peripheral arterial disease with angioplasty. 7. Restless legs syndrome. PLAN: Give her iron and Procrit. She refuses to have any blood transfusion as she is a Jain. Job#: [id number]
[2017-10-17 12:23] VITALS: BP 144/63
== END 2017-10-17 15:45 | disposition home or self-care (01) | DRG 812 ==
LOC: ER 13:38 → ERHOLD 15:37 → IMCU 15:40 → OBSVTOIN 10-14 10:18 → MED/SURG 10-14 10:48
PROVIDERS: ADMIT Internal Medicine Medical Oncology; ATTEND Internal Medicine Medical Oncology
DX: D50.0 Iron deficiency anemia secondary to blood loss (chronic) (principal); K92.2 Gastrointestinal hemorrhage, unspecified; I25.10 Atherosclerotic heart disease of native coronary artery without angina pectoris; I12.9 Hypertensive chronic kidney disease with stage 1 through stage 4 chronic kidney disease, or unspecified chronic kidney disease; N18.9 Chronic kidney disease, unspecified; Z95.5 Presence of coronary angioplasty implant and graft; E11.51 Type 2 diabetes mellitus with diabetic peripheral angiopathy without gangrene; Z79.4 Long term (current) use of insulin; I70.211 Atherosclerosis of native arteries of extremities with intermittent claudication, right leg; Z53.1 Procedure and treatment not carried out because of patient's decision for reasons of belief and group pressure; R94.39 Abnormal result of other cardiovascular function study; G25.81 Restless legs syndrome
CPT/HCPCS: 36415; 80053; 82270; 82550; 82553; 83880; 84484; 85025; 93005; 97139; 99284; G0378; J1100; J1200; J1750; J1756; J3420; J3480; J7030; J7040; J7050; Q4081

== ENCOUNTER → 2018-04-01 | Outpatient (CLI) | payer MEDICARE, OTHER ==
[~2018-04-01] MED LIST changes: +CYANOCOBALAMIN IM; +DEXILANT60 MG; +FISH OIL 1,0001 EAC3 PO; +IOPAMIDOL 370 MG/ML 200 ML INFUS..BTL INJ ONE; +SODIUM CHLORIDE 0.9% 100 ML 100 ML ONE; +SODIUM CHLORIDE 0.9% 250ML 500 ML ONE
[2018-04-01 09:26] LABS: ANION GAP 16.1 mmol/L (8-16); CALCIUM 9.8 mg/dL (8.4-10.2); CREATININE, SERUM 1.28 mg/dL (0.57-1.11); POTASSIUM 4.1 mmol/L (3.5-5.1)
--- NOTE | 2018-04-01 11:56 | Diagnostic Imaging Report ---
ADDENDUM #1 ADDENDUM: Dose modulation, iterative reconstruction, and/or weight based adjustment of the mA/kV was utilized to reduce the radiation dose to as low as reasonably achievable. Signed by: Dr. Angeles Packer MD on 04/10/2018 5:25 PM ORIGINAL REPORT CTA abdomen and pelvis Clinical history: History of infrarenal abdominal aortic aneurysm. Comparison: CT Abdomen/Pelvis without contrast 11/14/[address] Abdomen with contrast 10/05/16. Technique: Arterial phase CT abdomen and pelvis after administration of 100 mL Isovue-370 intravenous contrast. Volume rendered 3-D images of the arterial tree generated on an independent workstation under physician supervision. DLP: 243.1 mGy cm FINDINGS: VASCULAR: Aortic dimensions: Diaphragmatic hiatus: 2.2 cm Level of the renal arteries: 1.8 cm Infrarenal aorta: 3.2 x 3.1cm Right common iliac artery: 10.5 cm Left common iliac artery: 1.4 cm. Infrarenal abdominal aortic aneurysm measuring up to 3.2 x 2.7 cm, with an estimated length of approximately 10 cm is similar to that of CT from 10/05/2016. The aneurysm extends to the aortic bifurcation. No evidence of dissection. Severe atherosclerotic calcification of the abdominal aorta, branch vessels, and common iliac arteries without evidence of stenosis. There are adjacent penetrating atherosclerotic ulcers in the distal thoracic aorta (series 175, image [id number]). Penetrating atherosclerotic ulcer in the infrarenal abdominal aorta on image 49 and left common iliac artery on image 91. Ectatic left common iliac artery measuring up to 1.4 cm. The celiac artery, SMA, and FERNANDO are patent. Renal arteries: Two right and single left renal artery. Patent bilaterally. NON-VASCULAR FINDINGS: Lung bases: Unremarkable. Liver: Subcentimeter hyperdense lesion in the left hepatic lobe on series 175, image 25. No evidence of biliary ductal dilatation. Gallbladder: Unremarkable. Pancreas: Unremarkable. Spleen: Multiple hypodense splenic lesions are again noted. Adrenal glands: Unremarkable. Kidneys: No evidence of hydronephrosis or stone. Hypodense lesion in the inferior pole of the left kidney is unchanged and likely represents a cyst. Urinary bladder: Unremarkable. Uterus and adnexa: Unremarkable. Bowel: Normal caliber. No evidence of bowel obstruction. Diverticulosis without CT evidence of diverticulitis. Fatty infiltration of the wall of the ascending colon which could represent sequela of prior inflammation. Peritoneum: No free air or fluid. Lymph nodes: Normal Bones and soft tissues: No acute bony abnormality. Degenerative disc changes, most pronounced at L5-S1. IMPRESSION: Similar appearance of Infrarenal abdominal aortic aneurysm measuring up to 3.2 cm extending to the aortic bifurcation. Severe atherosclerotic changes of the abdominal aorta and branch vessels. Patent mesenteric vasculature. Multiple distal thoracic aortic penetrating ulcers. Penetrating ulcers in the infrarenal abdominal aorta and left common iliac artery. Hypodense splenic lesions are non-specific but could represent hemangiomas or lymphangiomas. Subcentimeter left hepatic lobe hyperdense lesion which could represent flash filling hemangioma. If there is clinical concern for malignancy, a liver protocol MRI may be considered. Signed by: Dr. Angeles Packer MD on 04/01/2018 11:52 AM
== END ==
LOC: CT 08:19
PROVIDERS: ATTEND Internal Medicine Interventional Cardiology
DX: I71.4 Abdominal aortic aneurysm, without rupture (principal)
CPT/HCPCS: 36415; 74174; 80048; 96360; J7050; Q9967